=== PATIENT | female | born 1975 | race Two or more races ===

== ENCOUNTER 2016-12-10 00:03 | Emergency (ER) | payer BC ==
[~2016-12-10] VITALS: Ht 165.1 cm; Wt 67.0 kg
[~2016-12-10 00:03] MED LIST: ASPIR-LOW81 MG PO; BACTRIM,SEPT1 TABLET PO; CLINDAMYCIN HC300 MG PO; MULTIVITAMIN1 EAC2 PO; SYNTHROID50 MCG PO
[2016-12-10 00:31] LABS: HEMATOCRIT 29.9 % (36.0-46.0); MCHC 34.8 G/DL (30.0-36.0); MCV 86.2 FL (83-99); MEAN PLAT.VOLUME 10.5 uM^3 (9.5-12.4); PLATELET COUNT 208 K/uL (156-360); RBC DIS.WIDTH-CV 13.5 % (11.8-14.6); RBC DIS.WIDTH-SD 42.2 % (39-53); RED BLOOD COUNT 3.47 M/uL (3.80-5.20); WHITE BLOOD COUNT 12.5 K/uL (4.1-10.2)
[2016-12-10 00:41] LABS: CHLORIDE 108 mEq/L (99-109); POTASSIUM 3.7 mEq/L (3.7-5.4); SODIUM 137 mEq/L (136-147)
[2016-12-10 00:42] LABS: GLUCOSE 96 mg/dL (70-99)
[2016-12-10 00:44] LABS: ANION GAP 8 MEQ/L (2-14)
[2016-12-10 00:46] LABS: GFR ESTIMATE (CALCULATED) > 59 mL/min/
[2016-12-10 00:47] LABS: UREA NITROGEN (BUN) 7 mg/dL (9-23)
[2016-12-10 02:42] LABS: TOTAL BILIRUBIN 0.2 mg/dL (0.0-1.0)
[2016-12-10 02:43] LABS: ALKALINE PHOSPHATASE 36 IU/L (3-129)
[2016-12-10 02:45] LABS: DIRECT BILIRUBIN 0.1 mg/dL (0.0-0.3)
[2016-12-10 02:46] LABS: LIPASE 41 U/L (1.0-51.0)
[2016-12-10 02:48] LABS: ADD MIUA? NO; BILIRUBIN NEGATIVE; BLOOD NEGATIVE; COLOR YELLOW ((YELLOW)); GLUCOSE (STRIP) NEGATIVE; KETONES NEGATIVE; LEUKOCYTES NEGATIVE; NITRITE NEGATIVE; PROTEIN (STRIP) NEGATIVE; SPECIFIC GRAVITY 1.016 (1.000-1.030); UCUL ADDED? NO; UROBILINOGEN 0.2 MG/DL (0.2-1.0)
[2016-12-10 05:02] VITALS: BP 103/65
== END 2016-12-10 05:04 | disposition home or self-care (01) ==
LOC: EME 00:03
PROVIDERS: Physician Assistant
DX: O26.892 Other specified pregnancy related conditions, second trimester (principal); R10.9 Unspecified abdominal pain; R11.0 Nausea; R30.0 Dysuria; M54.9 Dorsalgia, unspecified; O09.522 Supervision of elderly multigravida, second trimester; Z3A.18 18 weeks gestation of pregnancy; Z79.82 Long term (current) use of aspirin
CPT/HCPCS: 76770; 80048; 80076; 81003; 83690; 85027; 99281; 99284; J7030

== ENCOUNTER 2017-11-02 00:22 | Emergency (ER) | payer BC ==
[~2017-11-02] VITALS: Ht 165.1 cm; Wt 69.7 kg
[2017-11-02 00:54] LABS: HEMATOCRIT 35.7 % (36.0-46.0); HEMOGLOBIN 12.4 G/DL (11.9-15.5); MCH 29.9 PG (29.0-34.0); MCHC 34.7 G/DL (30.0-36.0); PLATELET COUNT 237 K/uL (156-360); RBC DIS.WIDTH-CV 12.5 % (11.8-14.6); RBC DIS.WIDTH-SD 39.4 % (39-53); RED BLOOD COUNT 4.15 M/uL (3.80-5.20); WHITE BLOOD COUNT 8.2 K/uL (4.1-10.2)
[2017-11-02 01:03] LABS: CHLORIDE 109 mEq/L (99-109); POTASSIUM 3.8 mEq/L (3.7-5.4); SODIUM 139 mEq/L (136-147)
[2017-11-02 01:05] LABS: GLUCOSE 94 mg/dL (70-99)
[2017-11-02 01:09] LABS: CREATININE 0.7 mg/dL (0.6-1.3); GFR ESTIMATE (CALCULATED) > 59 mL/min/
[2017-11-02 01:10] LABS: UREA NITROGEN (BUN) 13 mg/dL (9-23)
[2017-11-02 01:15] LABS: TROP-I INTERPRETATION NEGATIVE; TROPONIN-I < 0.01 ng/mL (0.0-0.30)
[2017-11-02 05:09] LABS: TROP-I INTERPRETATION NEGATIVE; TROPONIN-I < 0.01 ng/mL (0.0-0.30)
[2017-11-02 05:39] VITALS: BP 126/74
== END 2017-11-02 05:43 | disposition home or self-care (01) ==
LOC: EME 00:22
PROVIDERS: Emergency Medicine
DX: R07.9 Chest pain, unspecified (principal); R00.2 Palpitations; R00.1 Bradycardia, unspecified; Z79.82 Long term (current) use of aspirin
CPT/HCPCS: 71046; 80048; 84484; 85027; 93005; 99281; 99284